=== PATIENT | female | born 1995 | race Caucasian/White ===

== ENCOUNTER 2017-09-23 13:05 | Emergency (ER) | payer OTHER ==
[2017-09-23 13:18] VITALS: BP 115/66
--- NOTE | 2017-09-23 13:52 | EDM.PDOC ---
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 Patient is a . Blood type A positive. Reportedly her last menstrual period was July 12. She is approximately 8 weeks . She has been seeing Dr. Cruz. She states that she saw him for 6 weeks and they could not find heart tones on ultrasound. She then followed up with him on September 20. Ultrasound was repeated. Showed a miscarriage. Plan at that time was to do biweekly hCGs and repeat the ultrasound on 09-28-17. Discussed treatment options including watch and see approach, D&C and Cytotec. Patient elected to watch and see. Patient reports she has now developed lower abdominal and pelvic cramping. States this feels like normal menstrual She also has started vaginal bleeding. Started last night. She is saturating pads so far today. She denies any nausea, vomiting, lightheadedness, dizziness or syncope. Reports her cramps as a 6 out of 10[address] States [address] Lira office today. He would like to see her at 1:30 today. She states that she did not want to go and see Dr. Cruz today. She did not want to come to the ER today and was brought in by her family. - Related Data Allergies Allergy/AdvReac Type Severity Reaction Status Date / Time No Known Allergies Allergy Verified 09/23/17 13:14 Home Meds: Home Meds . [No Known Home Meds] 09/23/17 [History] Past Medical History - Past Health History Medical/Surgical History: Denies Medical/Surgical History Neurological History: Reports: Migraines Social & Family History - Tobacco Use Smoking Status *Q: Current Every Day Smoker Years of Tobacco use: 1 Packs/Tins Daily: 0.4 - Caffeine Use Caffeine Use: Reports: Coffee, Soda - Recreational Drug Use Recreational Drug Use: No ED ROS GENERAL - Review of Systems Review Of Systems: See Below Cardiovascular: Denies: Lightheadedness GI/Abdominal: Reports: Abdominal Pain (lower abdomen and pelvis cramping). Denies: Nausea, Vomiting Neurological: Denies: Dizziness, Syncope ED EXAM - Physical Exam Exam: See Below Exam Limited By: No Limitations General Appearance: Alert, WD/WN, No Apparent Distress Respiratory/Chest: No Respiratory Distress Neurological: Alert, Oriented, Normal Cognition Psychiatric: Normal Mood, Flat Affect Skin Exam: Warm, Dry, Normal Color Course - Vital Signs Last Recorded V/S: Last Vital Signs Temp 36.1 C 09/23/17 13:14 Pulse 99 09/23/17 13:14 Resp BP 115/66 09/23/17 13:14 Pulse Ox 99 09/23/17 13:14 Orthostatic Blood Pressure [ 110/82 Standing] Orthostatic Blood Pressure [ 102/73 Sitting] Orthostatic Blood Pressure [ 116/59 Supine] - Orders/Labs/Meds Orders: Active Orders 24 hr Category Date Time Status Orthostatic Vital Signs [RC] ASDIRECTED Care 09/23/17 13:49 Ordered Meds: Medications Discontinued Medications Generic Name Dose Route Start Last Admin Trade Name Jerodq PRN Reason Stop Dose Admin Acetaminophen 975 mg 09/23/17 13:55 Tylenol PO 09/23/17 13:56 NOW ONE - Re-Assessments/Exams Free Text/Narrative Re-Assessment/Exam: 09/23/17 14:49 Patient's blood type is A+. I encouraged her to have labs including a quantitative hCG, pelvic exam and possibly an ultrasound. She does not want anything done today. She would like to adopt a wait and see approach. She declines an exam, labs and ultrasound today. She states she'll follow up with Dr. Cruz on Wednesday as planned. I offered to contact Dr. Cruz's office to have her be seen earlier. She does not want this and would like to seen on Wednesday as planned. She is instructed to return to the ER for symptoms change or worsen. Departure - Departure Time of Disposition: 14:59 Disposition: Home, Self-Care 01 Condition: Fair Clinical Impression: Miscarriage - Discharge Information Instructions: Miscarriage, [id number] Referrals: Sowmya Hatch NP [Primary Care Provider] - Too Cruz MD [Physician] - Forms: ED Department Discharge Additional Instructions: Follow-up with Dr. Cruz this week as planned. [id number] Tylenol or Motrin as needed for pain relief. Expect bleeding and cramping. Return to the ER immediately if your symptoms change or worsened. - My Orders Last 24 Hours: My Active Orders 09/23/17 13:49 Orthostatic Vital Signs [RC] ASDIRECTED - Assessment/Plan Last 24 Hours: My Active Orders 09/23/17 13:49 Orthostatic Vital Signs [RC] ASDIRECTED
[2017-09-23] MEDS ORDERED: Acetaminophen 325 MG Tab PO ONE (13:55)
== END 2017-09-23 14:30 | disposition home or self-care (01) ==
LOC: JD.ED 13:05
DX: O03.9 Complete or unspecified spontaneous abortion without complication (principal); F17.210 Nicotine dependence, cigarettes, uncomplicated
CPT/HCPCS: 99283

== ENCOUNTER 2017-09-25 11:47 | Emergency (ER) | payer OTHER ==
[2017-09-25 11:59] VITALS: BP 120/73
[2017-09-25] MEDS ORDERED: HYDROmorphone 1 MG/ML Syringe IM ONE (12:27)
[2017-09-25] MEDS ORDERED: Ketorolac 30 MG/ML SDV IM ONE (12:27)
--- NOTE | 2017-09-25 12:39 | EDM.PDOC ---
ED HPI GENERAL MEDICAL PROBLEM - General Chief Complaint: Abdominal Pain Stated Complaint: LOW ABDOMINAL PAIN Time Seen by Provider: 09/25/17 12:17 Source of Information: Reports: Patient History Limitations: Reports: No Limitations - History of Present Illness INITIAL COMMENTS - FREE TEXT/NARRATIVE: patient is a 21-year-old female who presents to the ED complaining of lower pelvic pain. Patient was recently diagnosed with miscarriage 2 days ago. She was 8 weeks this time. Since then she's been complaining of pain to the suprapubic region has been on and off for the past 2 days and getting mildly worse. In addition she continues have vaginal bleeding and as of today saturated 2 pads over one hour prior to presenting to the ED. Per patient bleeding has not really increased since evaluation in the ED. There has been some tissue present. She has been followed by Dr. Cruz and has an appointment scheduled for this coming Wednesday for ultrasound and blood work. She was evaluated in the ED 09/23/17 and was offered labs and ultrasound to which patient refused. patient's blood type is A+. Last menstrual cycle was July 12. She saw Dr. Cruz in September with ultrasound repeated showing miscarriage. She's been obtaining bilateral weekly HCGs and repeat ultrasound scheduled for the Sep 28. She has opted to not go through D&C and Cytotec. She has elected to watch and see approach. Denies any nausea/vomiting, lightheadedness, dizziness, presyncope/syncopal episodes,fever, dysuria, or any additional complaints. Pain is currently a 10 out of 10 localized described as sharp and crampy. 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 Denies: Constipation, Diarrhea, Nausea, Vomiting Neurological: Reports: No Symptoms ED EXAM - Physical Exam Exam: See Below Exam Limited By: No Limitations General Appearance: Alert, WD/WN, No Apparent Distress Ears: Hearing Grossly Normal Nose: Normal Inspection Throat/Mouth: Normal Inspection, Normal Oropharynx, Normal Voice, No Airway Compromise Neck: Normal Inspection, Supple Respiratory/Chest: No Respiratory Distress, Lungs Clear, Normal Breath Sounds, No Accessory Muscle Use Cardiovascular: Normal Peripheral Pulses, Regular Rate, Rhythm GI/Abdominal Exam: Normal Bowel Sounds, Soft, No Organomegaly, No Distention, Tender (suprapubic, no mcburneys/kwok sign. ) (Female) Exam: Other (deferred) Back Exam: Normal Inspection Extremities: Normal Inspection Neurological: Alert, Oriented, CN II-XII Intact, Normal Cognition, No Motor/ Sensory Deficits Psychiatric: Normal Affect, Normal Mood Skin Exam: Warm, Dry, Intact, Normal Color Course - Vital Signs Last Recorded V/S: Last Vital Signs Temp 96.9 F 09/25/17 11:57 Pulse 90 09/25/17 11:57 Resp 20 09/25/17 11:57 BP 120/73 09/25/17 11:57 Pulse Ox 100 09/25/17 11:57 Orthostatic Blood Pressure [ 115/81 Standing] Orthostatic Blood Pressure [ 113/71 Sitting] Orthostatic Blood Pressure [ 112/79 Supine] - Orders/Labs/Meds Orders: Active Orders 24 hr Category Date Time Status Orthostatic Vital Signs [RC] ASDIRECTED Care 09/25/17 12:34 Active Meds: Medications Discontinued Medications Generic Name Dose Route Start Last Admin Trade Name Freq PRN Reason Stop Dose Admin Hydromorphone HCl 1 mg 09/25/17 12:27 Dilaudid IM 09/25/17 12:28 ONETIME ONE Ketorolac Tromethamine 30 mg 09/25/17 12:27 Toradol IM 09/25/17 12:28 ONETIME ONE - Re-Assessments/Exams Free Text/Narrative Re-Assessment/Exam: Patient is refusing any blood work or ultrasound at this time. On examination pain is located to the suprapubic region unchanged from previous E.D. visits. She requests something for the pain while in the ED and also upon discharge to get her through until Wednesday when she sees Dr. Cruz. Ordered Toradol 30 mg IM and also Dilaudid 1 mg IM. We'll discharge patient home with instructions as documented and a prescription for Percocet. 09/25/17 13:06Patient refused Dilaudid and Toradol. Did not want shots. Discharge instructions as documented. Departure - Departure Time of Disposition: 12:35 Disposition: Home, Self-Care 01 Condition: Fair Clinical Impression: Miscarriage Abdominal pain Qualifiers: Abdominal location: lower abdomen, unspecified Qualified Code(s): R10.30 - Lower abdominal pain, unspecified - Discharge Information Prescriptions: Acetaminophen/oxyCODONE [Percocet 325-5 MG] 1 tab PO Q6H PRN #15 tablet PRN Reason: Pain (Severe 7-10) Instructions: Abdominal Pain, Adult, [id number], Pain Medicine Instructions, [id number] Referrals: Too Cruz MD [Primary Care Provider] - Forms: ED Department Discharge Additional Instructions: As discussed for pain take ibuprofen 600mg Po every 6 hrs and tylenol 650mg every 6 hrs in alternating form Push the fluids. For severe pain take percocet 1 tab every 6 hrs as needed. Do not take percocet and tylenol together. Keep appt with Dr. Cruz for this coming Wednesday. Do not consume any alcohol while taking the percocet. Return to the E.D. as needed for any new or worsening symptoms. - My Orders Last 24 Hours: My Active Orders 09/25/17 12:34 Orthostatic Vital Signs [RC] ASDIRECTED - Assessment/Plan Last 24 Hours: My Active Orders 09/25/17 12:34 Orthostatic Vital Signs [RC] ASDIRECTED
== END 2017-09-25 13:15 | disposition home or self-care (01) ==
LOC: JD.ED 11:47
DX: O03.9 Complete or unspecified spontaneous abortion without complication (principal); F17.210 Nicotine dependence, cigarettes, uncomplicated
CPT/HCPCS: 99283; 99284

== ENCOUNTER 2018-10-02 09:20 | Emergency (ER) | payer OTHER, BC, MEDICAID ==
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
--- NOTE | 2018-10-02 11:11 | US ---
Limited obstetrical ultrasound: Multiple real-time images was obtained transabdominally. Comparison: Previous obstetrical ultrasound of 09/07/18. Dates: Current ultrasound: ANNY 03/11/19, gestational age 17 weeks 1 day Previous ultrasound (09/07/18): ANNY 03/08/19, gestational age 17 weeks 4 days presentation: Cephalic Placenta: Posterior with no findings of placenta previa or abruption Amniotic fluid: EMMY 8.54 cm Other findings: Small amount of fluid seen within the endocervical canal. Measurements: BPD: 3.45 cm - 16 weeks 5 days Head circumference: 13.44 cm - 17 weeks 0 days Abdominal circumference: 11.57 cm - 17 weeks 3 days Femur length: 2.36 cm - 17 weeks 1 day Estimated weight: 184 g (0 lbs. 6 oz.), estimated weight at the 46th percentile for age by current ultrasound Heart rate: 143 BPM Impression: 1. Single intrauterine fetus. Dates as noted above. 2. Small amount of fluid within the endocervical canal. If patient has no vaginal bleeding, this is felt to be incidental. 3. No complicating process is otherwise seen by ultrasound. Diagnostic code #3
[2018-10-02 11:53] VITALS: BP 122/86
== END 2018-10-02 11:52 | disposition home or self-care (01) ==
LOC: JD.ED 09:20
DX: O23.42 Unspecified infection of urinary tract in pregnancy, second trimester (principal); Z3A.17 17 weeks gestation of pregnancy; Z87.891 Personal history of nicotine dependence; V47.1XXA Car passenger injured in collision with fixed or stationary object in nontraffic accident, initial encounter
CPT/HCPCS: 76815; 76815-26; 81001; 99284-25

== ENCOUNTER 2020-11-25 18:33 | Emergency (ER) | payer BC, MEDICAID ==
[2020-11-25 18:57] VITALS: BP 142/86; PULSE 90
--- NOTE | 2020-11-25 19:41 | EDM.PDOC ---
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 at that time". Blood type A pos looking at prior record. Started with vag. spotting yesterday, more heavy vaginal bleeding with clots today, possible tissue. 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: Reports: Other (See Below) Other BODY ENGINEER History: misscarriage at 8 weeks Neurological History: Reports: Migraines Social & Family History - Tobacco Use Tobacco Use Status *Q: Current Every Day Tobacco User Years of Tobacco use: 4 Packs/Tins Daily: 0.5 - Caffeine Use Caffeine Use: Reports: None - Recreational Drug Use Recreational Drug Use: No - Living Situation & Occupation Living situation: Reports: Occupation: Unemployed ED ROS GENERAL - Review of Systems Review Of Systems: See Below Constitutional: Denies: Fever, Chills, Diaphoresis HEENT: Reports: No Symptoms Respiratory: Denies: Shortness of Breath, Pleuritic Chest Pain Cardiovascular: Denies: Chest Pain GI/Abdominal: Reports: Abdominal Pain (low mid and bilat pelvic) Musculoskeletal: Reports: Back Pain. Denies: Shoulder Pain, Arm Pain Skin: Reports: No Symptoms Neurological: Reports: No Symptoms ED EXAM - Physical Exam Exam: See Below General Appearance: Alert, No Apparent Distress Head: Atraumatic Neck: Supple Respiratory/Chest: No Respiratory Distress, Lungs Clear, Normal Breath Sounds Cardiovascular: Regular Rate, Rhythm GI/Abdominal Exam: Soft, Tender (mild bilat lower mid and bilat pelvic tenderness). No: Guarding, Rebound (Female) Exam: Normal External Exam, Other (trace blood post vag vault, (pink mucous) no active bleeding, no clots or tissue present, cvx closed at time of exam) Extremities: Normal Inspection, Normal Range of Motion Neurological: Alert, Oriented, No Motor/Sensory Deficits Skin Exam: Warm, Dry, Normal Color Course - Vital Signs Last Recorded V/S: Last Vital Signs Temp 97 F 11/25/20 18:55 Pulse 90 11/25/20 18:55 Resp 16 11/25/20 18:55 BP 142/86 H 11/25/20 18:55 Pulse Ox 99 11/25/20 18:55 Orthostatic Blood Pressure [ 134/89 Standing] Orthostatic Blood Pressure [ 126/71 Supine] - Orders/Labs/Meds Orders: Active Orders 24 hr Category Date Time Status OB Transvaginal [US] Stat Exams 11/25/20 19:11 Taken Labs: Laboratory Tests 11/25/20 11/25/20 Range/Units 19:28 19:28 WBC 8.65 (3.98-10.04) K/mm3 RBC 4.60 (3.98-5.22) M/mm3 Hgb 13.6 (11.2-15.7) gm/dl Hct 39.9 (34.1-44.9) % MCV 86.7 (79.4-94.8) fl MCH 29.6 (25.6-32.2) pg MCHC 34.1 (32.2-35.5) g/dl RDW Std Deviation 38.1 (36.4-46.3) fL Plt Count 174 L (182-369) K/mm3 MPV 11.0 (9.4-12.3) fl Neut % (Auto) 64.4 (34.0-71.1) % Lymph % (Auto) 25.5 (19.3-51.7) % [place] % (Auto) 8.0 (4.7-12.5) % Eos % (Auto) 1.7 (0.7-5.8) Baso % (Auto) 0.2 (0.1-1.2) % Neut # (Auto) 5.56 (1.56-6.13) K/mm3 Lymph # (Auto) 2.21 (1.18-3.74) K/mm3 [place] # (Auto) 0.69 H (0.24-0.36) K/mm3 Eos # (Auto) 0.15 (0.04-0.36) K/mm3 Baso # (Auto) 0.02 (0.01-0.08) K/mm3 HCG, Quant 78864.0 mIU/mL - Re-Assessments/Exams Free Text/Narrative Re-Assessment/Exam: 11/25/20 21:21 quant. HCG 23,573. Hgb 13.6. US does show intauterine gest. sac., singe pole, no heart tones, see Radiology report for details. On pelvic exam not small trace of blood only in the vag vault at time of exam. Discharge instr. as documented. Departure - Departure Time of Disposition: 21:17 Disposition: Home, Self-Care 01 Condition: Fair Clinical Impression: Threatened - Discharge Information Instructions: Threatened Miscarriage, [id number] Referrals: Sowmya Hatch NP [Primary Care Provider] - Forms: ED Department Discharge Additional Instructions: Rest, drink plenty of water, no sexual activity recomended for now. Your Quantitative HCG level today is 23,573. Call Dr Tarango's office tomorrow AM for follow up appt. Return to ED for severe bleeding, if you are soaking a pad per hour for more than 1 or 2 hours or symptoms otherwise worsening in any way. Sepsis Event Note (ED) - Evaluation Sepsis Screening Result: No Definite Risk - Focused Exam Vital Signs: Vital Signs Temp Pulse Resp BP Pulse Ox 11/25/20 18:55 97 F 90 16 142/86 H 99 - My Orders Last 24 Hours: My Active Orders 11/25/20 19:11 OB Transvaginal [US] Stat - Assessment/Plan Last 24 Hours: My Active Orders 11/25/20 19:11 OB Transvaginal [US] Stat
--- NOTE | 2020-11-26 07:01 | US ---
First trimester obstetrical ultrasound: Multiple real-time images were obtained transvaginally. Uterus appears to be bicornuate. There is a gestational sac being seen within the left side of the endometrial cavity. Very small pole is noted as well as yolk sac. Maternal ovaries are within normal limits. Incidental corpus luteum cyst is noted within the right side. Measurements: [place]-rump length: 0.34 cm - 6 weeks 0 days Impression: 1. Gestational sac with small pole dates around 6 weeks 0 days. No heart activity is seen and recommend follow-up ultrasound exam in 11 days to hopefully confirm heart rate activity. 2. 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
== END 2020-11-25 21:25 | disposition home or self-care (01) ==
LOC: JD.ED 18:33
DX: O20.0 Threatened abortion (principal); Z72.0 Tobacco use; Z3A.01 Less than 8 weeks gestation of pregnancy
CPT/HCPCS: 36415; 76817; 76817-26; 84702; 85025; 99283; 99284-25

== ENCOUNTER 2022-01-10 12:27 | Emergency (ER) | payer MEDICAID ==
[2022-01-10 12:37] VITALS: BP 131/86; PULSE 109
[2022-01-10] MEDS ORDERED: Magnesium Citrate Solution 296 ML Bottle PO ONE (14:35)
== END 2022-01-10 14:52 | disposition home or self-care (01) ==
LOC: JD.ED 12:27
DX: K59.01 Slow transit constipation (principal)
CPT/HCPCS: 74018; 76705; 99284; A9270